=== PATIENT | female | born 1970 | race Caucasian/White ===

== ENCOUNTER 2019-01-31 15:45 | Emergency (ER) | payer SELFPAY ==
[~2019-01-31] VITALS: Ht 167.6 cm; Wt 54.9 kg
[2019-01-31 16:02] VITALS: BP 132/61; PULSE 58; RESP 18; Ht 167.6 cm; Wt 54.9 kg
== END 2019-01-31 18:07 | disposition left against medical advice (07) ==
LOC: E/R 15:45
DX: Z53.21 Procedure and treatment not carried out due to patient leaving prior to being seen by health care provider (principal)